=== PATIENT | female | born 1955 ===

== ENCOUNTER 2018-04-02 17:31 | Emergency (ER) | payer BC, MEDICAID, MEDICARE, SELFPAY ==
--- NOTE | 2018-04-02 17:59 | ED PDOC ---
HPI: General Adult Time Seen by Provider: 04/02/18 17:58 Chief Complaint (Nursing): Ingestion, Accidental Chief Complaint (Provider): accidental ingestion History Per: Patient Additional Complaint(s): 63-year-old female presents to emergency department for evaluation status post accidentally ingesting a floor stripper connie cleaner. Patient put stripper connie cleaner in seltzer bottle and then put the bottle in the freezer thinking it was water. She grabbed a bottle out of the freezer and took a sip and immediately realized that it was not water. The patient's swallowed some of it but spit most of it out. She then drank water and milk and forced herself to vomit to try and expel the remainder of the liquid she swallowed. Patient complains of epigastric pain and vomiting upon arrival. She denies any throat discomfort, no shortness of breath, no chest pain. Patient states she throughout the bottle of the connie cleaner after she transferred to the seltzer bottle. She is not sure of the exact ingredients PMD: Dr. Preet Hairston Past Medical History Reviewed: Historical Data, Nursing Documentation, Vital Signs Vital Signs: Last Vital Signs Temp 97.8 F 04/02/18 23:04 Pulse 75 04/02/18 23:04 Resp 18 04/02/18 23:04 BP 177/93 H 04/02/18 23:04 Pulse Ox 96 04/02/18 23:04 - Medical History PMH: HTN - Family History Family History: States: No Known Family Hx - Living Arrangements Living Arrangements: With Family - Social History Current smoker - smoking cessation education provided: No Alcohol: None Drugs: Denies - Allergies Allergies/Adverse Reactions: Allergies Allergy/AdvReac Type Severity Reaction Status Date / Time No Known Allergies Allergy Unverified 04/02/18 17:52 Review of Systems ROS Statement: Except As Marked, All Systems Reviewed And Found Negative Cardiovascular: Negative for: Chest Pain Gastrointestinal: Positive for: Nausea, Vomiting, Abdominal Pain (epigastric), 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 Negative for: Rash Eye Exam: Positive for: Normal appearance Cardiovascular/Chest: Positive for: Regular Rate, Rhythm Respiratory: Positive for: Normal Breath Sounds Gastrointestinal/Abdominal: Positive for: Soft. Negative for: Tenderness, Distended Extremity: Positive for: Normal ROM Neurologic/Psych: Positive for: Alert, Oriented - Laboratory Results Result Diagrams: 04/02/18 22:10 04/02/18 19:03 - ECG Interpretation Of ECG: Normal sinus rhythm at 83 beats per minute, no acute changes, reviewed by PA and ED attending O2 Sat by Pulse Oximetry: 96 Pulse Ox Interpretation: Normal Medical Decision Making Medical Decision Makin63 y/o female here for evaluation s/p accidental ingestion of floor stripper connie cleaner Plan: EKG CBC CMP Lipase Urine dip IVF IV zofran IV protonix Poison control was contacted, spoke with Ashlee Olmos who states to monitor pt for at least 4 hours in ED. Monitor Hgb/hct and also try to do PO challenge prior to d/c to make sure patient is tolerating PO and has no respiratory compromise. Also states to provide supportive treatment as needed. Disposition - Clinical Impression Clinical Impression: Accidental ingestion of substance - Patient ED Disposition Is Patient to be Admitted: Transfer of Care - Disposition Disposition: Transfer of Care Disposition Time: 20:00 Condition: IMPROVED Instructions: Chemical Ingestion (DC) Forms: [employer] (Spanish) Patient Signed Over To: Massiel Williamson Handoff Comments: Case was signed out to GEOVANNY Williamson pending re-evaluation, PO challenge and final disposition
[2018-04-02] MEDS ORDERED: Sodium Chloride 0.9% 1,000 ML IV STA (18:10)
[2018-04-02 19:08] LABS: BASO # 0.1 K/uL (0.0-0.2); BASO % 0.8 % (0.0-2.0); EOS % 0.4 % (0.0-4.0); HEMOGLOBIN 13.1 g/dL (12.0-16.0); LYMPH # 2.8 K/uL (1.0-4.3); LYMPH % 29.4 % (20.0-40.0); MEAN CELL VOLUME 92.6 fl (81.0-99.0); MEAN CORPUSCULAR HEMOGLOBIN 31.4 pg (27.0-31.0); MEAN CORPUSCULAR HGB CONC 33.9 g/dL (33.0-37.0); MEAN PLATELET VOLUME 9.3 fl (7.2-11.7); MONO # 0.8 K/uL (0.0-0.8); MONO % 8.1 % (0.0-10.0); NEUT # 5.9 K/uL (1.8-7.0); NEUT % 61.3 % (50.0-75.0); NRBC % 0.1 % (0.0-0.0); RBC 4.18 Mil/uL (3.80-5.20); RED CELL DISTRIBUTION WIDTH 14.3 % (11.5-14.5); WHITE BLOOD COUNT 9.7 K/uL (4.8-10.8)
[2018-04-02 19:19] LABS: ALB/GLOB RATIO 1.2 (1.0-2.1); ALBUMIN 4.8 g/dL (3.5-5.0); CALCIUM 9.9 mg/dL (8.4-10.2); GFR AFRICAN-AMERICAN > 60; GFR NON-AFRICAN AMERICAN 56; LIPASE 108 U/L (23-300)
[2018-04-02 19:21] LABS: ALT/SGPT 31 U/L (9-52); AST/SGOT 27 U/L (14-36); BLOOD UREA NITROGEN 23 mg/dl (7-17)
[2018-04-02 22:45] LABS: BASO # 0.1 K/uL (0.0-0.2); BASO % 0.7 % (0.0-2.0); EOS % 0.3 % (0.0-4.0); HEMOGLOBIN 12.8 g/dL (12.0-16.0); LYMPH # 3.7 K/uL (1.0-4.3); LYMPH % 37.7 % (20.0-40.0); MEAN CELL VOLUME 91.9 fl (81.0-99.0); MEAN CORPUSCULAR HEMOGLOBIN 31.1 pg (27.0-31.0); MEAN CORPUSCULAR HGB CONC 33.9 g/dL (33.0-37.0); MEAN PLATELET VOLUME 8.7 fl (7.2-11.7); MONO # 0.6 K/uL (0.0-0.8); MONO % 5.9 % (0.0-10.0); NEUT # 5.4 K/uL (1.8-7.0); NEUT % 55.4 % (50.0-75.0); NRBC % 0.1 % (0.0-0.0); RBC 4.12 Mil/uL (3.80-5.20); RED CELL DISTRIBUTION WIDTH 14.4 % (11.5-14.5); WHITE BLOOD COUNT 9.7 K/uL (4.8-10.8)
--- NOTE | 2018-04-02 22:58 | ED PDOC ---
- Laboratory Results Result Diagrams: 04/02/18 22:10 04/02/18 19:03 - ECG O2 Sat by Pulse Oximetry: 97 - Progress ED Course And Treament: Case endorsed to racebook writer from [facility] pending repeat CBC 22:10 RN spoke with poison control, who will be closing case at this time 22:55 CBC resulted, no significant changes Patient tolerating PO, states she is feeling better. Vitals improved Patient educated on findings, advised follow up PMD 2-3 days. Return precautions given Disposition - Clinical Impression Clinical Impression: Accidental ingestion of substance - POA Present On Arrival: None - Disposition Disposition: Routine/Home Disposition Time: 22:57 Condition: IMPROVED Instructions: Chemical Ingestion (DC) Forms: [facility] (Greenlandic)
[2018-04-02 23:05] VITALS: BP 177/93; PULSE 75; RESP 18; TEMP 97.8; O2SAT 96
--- NOTE | 2018-04-03 08:09 | CARD ---
APPROVED REPORT EKG Measurement Heart [id number] <Conclusion> Normal sinus rhythm Normal ECG
--- NOTE | 2018-04-03 10:37 | RAD ---
HISTORY: clearance COMPARISON: No prior. FINDINGS: LUNGS: Minor the the atelectasis and or scarring changes left lung base. PLEURA: No significant pleural effusion identified, no pneumothorax apparent. CARDIOVASCULAR: Normal. OSSEOUS STRUCTURES: No significant abnormalities. VISUALIZED UPPER ABDOMEN: Normal. OTHER FINDINGS: None. IMPRESSION: Minor atelectasis and or scarring changes left lung base.
== END 2018-04-02 23:12 | disposition home or self-care (01) ==
LOC: H.ER 17:31
DX: T55.1X1A Toxic effect of detergents, accidental (unintentional), initial encounter (principal); I10 Essential (primary) hypertension
CPT/HCPCS: 71045; 80053; 83690; 85025; 93005; 96374; 99284; J2405; J7030